=== PATIENT | female | born 1995 | race Caucasian/White ===

== ENCOUNTER 2022-07-18 20:43 | Emergency (ER) | payer BC, OTHER ==
[2022-07-18 20:46] VITALS: BP 119/77; PULSE 86; RESP 18; TEMP 98; BMI 30.2
== END 2022-07-18 22:22 | disposition home or self-care (01) ==
LOC: JERFT 20:43
DX: S09.90XA Unspecified injury of head, initial encounter (principal); S19.9XXA Unspecified injury of neck, initial encounter; V49.40XA Driver injured in collision with unspecified motor vehicles in traffic accident, initial encounter
CPT/HCPCS: 84703; 99283-25